=== PATIENT | male | born 1980 | race Caucasian/White ===

== ENCOUNTER → 2020-11-23 | Outpatient (CLI) | payer OTHER ==
--- NOTE | 2020-11-24 09:02 | EKG ---
[place] [address] ELECTROCARDIOGRAM REPORT Name: ROSALINA DECKER Room: [facility]#: [id number] Admission: 11/23/20 Attend Phys: LEBRON No Discharge: Date of : 80 Date of Service: 11/23/20 1629 Report #: [id number] THIS REPORT FOR: //name// [facility] Test Date: 2020-11-23 Test Time: 16:29:01 Pat Name: ROSALINA DECKER Department: Room: Gender: Insole Buffer: : 1980 Requested By: Flavio Landeros Order Number: [id number] Reading MD: Juan Carlos Ortega Measurements Intervals [place] Rate: 62 P: 63 MO: 135 QRS: 65 QRSD: 93 T: 56 QT: 395 QTc: 401 Interpretive Statements Sinus rhythm ST elev, probable normal early repol pattern No previous ECG available for comparison Electronically Signed On 11-24-2020 9:02:37 VEHICLE FARE COLLECTOR by Juan Carlos Ortega [email or web address] <ELECTRONICALLY SIGNED> By: Juan Carlos Ortega MD, [facility] 11/24/20901 1629 1629 Juan Carlos Ortega MD, FAC /EPI
== END ==
LOC: M.RAD 15:47
PROVIDERS: ATTEND Nurse Practitioner Family
DX: I49.9 Cardiac arrhythmia, unspecified (principal)

== ENCOUNTER 2020-12-16 10:43 | Outpatient (CLI) | payer OTHER ==
[2020-12-16] VITALS (8 sets, daily range): BP systolic 110–130; BP diastolic 65–71
[~2020-12-16] VITALS: Ht 185.4 cm; Wt 111.1 kg
--- NOTE | ~2020-12-16 | H ---
[address] [address] HISTORY AND PHYSICAL Name: ROSALINA DECKER Room: [facility] RONEL Escobar#: [id number] Admission: 12/16/20 Attend Phys: Michelle Szymanski MD, Discharge: 12/16/20 Date of : 80 Report #: [id number] THIS REPORT FOR: cc: Flavio Landeros Robin L. FNP ~ [facility],Medical Records Staff Please refer to the History and Physical performed in the physician's office. By: [id number] Records Staff [facility] /MAXINE
[~2020-12-16 10:43] MED LIST: NOHOMEMEDICATIONS
[2020-12-16 12:17] LABS: HEMATOCRIT 46.5 % (42.0-52.0); HEMOGLOBIN 15.9 gm/dL (14.0-18.0); MCH 29.8 pg (26.0-34.0); MCHC 34.2 g/dL (28.0-37.0); MCV 87.1 fL (80.0-100.0); MPV 9.4 fl. (7.2-11.1); RBC 5.33 mil/uL (4.50-6.00); RDW-CV 13.1 % (10.5-14.5); WBC 5.8 thou/uL (4.0-11.0)
[2020-12-16 12:25] LABS: ANION GAP 8 mmol/L (7-16); BUN 12 mg/dL (7-18); CALCIUM 9.2 mg/dL (8.5-10.1); CHLORIDE 105 mmol/L (98-107); CO2 28 mmol/L (21-32); CREATININE 0.9 mg/dL (0.6-1.3); GLUCOSE 79 mg/dL (70-99); SODIUM 141 mmol/L (136-145)
[2020-12-16 12:28] LABS: APTT 25.1 Seconds (25.0-31.3); PROTIME 10.5 Seconds (9.20-11.50)
[2020-12-16 12:29] LABS: ALBUMIN 4.1 g/dL (3.4-5.0); ALKALINE PHOSPHATASE 57 U/L (46-116); CHOLESTEROL 122 mg/dL (<200); HDL CHOLESTEROL 40 mg/dL (>40); LDL CHOLESTEROL 61 mg/dL (<100); SGOT 38 U/L (15-37); SGPT 60 U/L (30-65); TC:HDL 3.1 Ratio (Not establshd); TOTAL BILIRUBIN 0.6 mg/dL (<0.1-1.0); TOTAL PROTEIN 7.4 g/dL (6.4-8.2); TRIGLYCERIDE 108 mg/dL (<150); VLDL 22 mg/dL (<40)
[2020-12-16 12:30] LABS: SERUM ASSESSMENT Clear
--- NOTE | 2020-12-16 17:02 | CARD ---
[address] [address] CARDIAC CATH REPORT Name: ROSALINA DECKER Room: [address] Lawanda Escobar#: [id number] Admission: 12/16/20 Attend Phys: Jeb Hare MD, Discharge: Date of : 80 Report #: [id number] THIS REPORT FOR: cc: Flavio Landeros Robin L. FNP ~ Jeb Hare MD [facility] APPROVED REPORT Study performed: 12/16/2020 13:29:38 Patient Details Patient Status: Out-Patient Room #: The patient is a 39 year-old male Event Personnel Jeb Hare E Commerce Developer, Huber Guerrero RTR Scrub, Ginger Coe RTR Monitor, Joseline Anglin RN Procedures Performed Art Access - R femoral artery Left Heart Cath w/or w/o Coronaries Hemostasis w/ Mynx Indication Chest pain Risk Factors Obesity, Family History, Hypercholesterolemia Admission/Lab Medications/Medications given during procedure Oxygen Nasal cannula 2 l per min, 0.9% Sodium Chloride IV 75 ml per hr, Fentanyl IV 25 mcg, Midazolam (Versed) IV 2 mg, Lidocaine Subcut 14 ml, Midazolam (Versed) IV 1 mg, 0.9% Sodium Chloride IV 125 ml per hr Procedure Narrative The patient was brought electively to the Cardiac Catheterization Laboratory and was prepped and draped in a sterile manner. The right femoral was infiltrated with 2% Lidocaine subcutaneous anesthesia. A [place] 6 FR sheath was inserted into the right femoral artery. Coronary angiography was performed using coronary diagnostic catheters. The right coronary system was accessed and visualized with a Diagnostic 6 Fr JR 4 catheter. The left coronary system was accessed and visualized with a Diagnostic 6 Fr JL 4 catheter. The left ventricle was accessed and visualized with a Diagnostic 6 [place] [address] CARDIAC CATH REPORT Name: ROSALINA DECKER Room: [address] MPiero.#: [id number] Admission: 12/16/20 Attend Phys: Jeb Hare MD, Discharge: Date of : 80 Report #: [id number] Pigtail catheter. Left ventricular/Aortic Valve gradient assessed via catheter pullback. Left ventriculogram was performed in ZAZUETA projection. Pre-demployment femoral angiogram was performed . Closure device was deployed with a Fr Mynx 6Fr/7Fr. The patient tolerated the procedure well and there were no complications associated with the procedure. There was no hematoma. Intraoperative Conscious Sedation Sedation start time: 13:42 Case end Time: 13:55 Fentanyl 50 mcg Versed 3 mg Fluoro Time: 2.1 minutes Dose: DAP 92704 cGycm2 720 mGy Contrast Type and Amount: Visipaque 90 ml Coronary Angiography The patient's coronary anatomy is right dominant. Diagnostic Cath Left Main 0% narrowing LAD 0% narrowing Circumflex Small nondominant vessel with 0% narrowing Right Coronary Large dominant vessel with 0% narrowing Left Ventriculography The left ventricle is normal in size with normal contractility. The left ventricular ejection fraction is estimated to be 60-65%. Left ventricular wall motion abnormalities are not present. There is no mitral insufficiency. Hemodynamics The aortic pressure is 121/44 mmHg with a mean of 65 mmHg. The left ventricular pressure is 107/-2 mmHg with a mean of mmHg. The left ventricular end diastolic pressure is 8 mmHg. Conclusion 1. Normal coronary arteries 2. Normal left ventricular systolic function, estimated ejection fraction being 60-65% 3. Normal left-sided hemodynamic [place] [address] CARDIAC CATH REPORT Name: ROSALINA DECKER Room: [address]#: [id number] Admission: 12/16/20 Attend Phys: Jeb Hare MD, Discharge: Date of : 80 Report #: [id number] Cardiac Risk Reduction Program Diagnostic Cath Approved by: Jeb Hare MD Date/Time: 12/16/2020 17:02:11 <ELECTRONICALLY SIGNED> By: Jeb Hare MD, [facility] 12/16/20 170 01 1702Joscott Hare MD, FACC /INF
== END 2020-12-16 17:30 | disposition home or self-care (01) ==
LOC: M.CL 10:43 → M.TBA-CV 14:08 → M.CL 14:08 → M.TBA-CV 12-19 10:09
PROVIDERS: Internal Medicine; ATTEND Internal Medicine
DX: R07.9 Chest pain, unspecified (principal); E78.00 Pure hypercholesterolemia, unspecified; E66.09 Other obesity due to excess calories; Z98.890 Other specified postprocedural states; Z79.899 Other long term (current) drug therapy; Z90.49 Acquired absence of other specified parts of digestive tract; Z88.8 Allergy status to other drugs, medicaments and biological substances